=== PATIENT | male | born 1965 | race Two or more races ===

== ENCOUNTER 2022-10-02 12:47 | Inpatient (IN) | payer OTHER ==
[~2022-10-02] VITALS: Ht 157.5 cm; Wt 58.5 kg
--- NOTE | 2022-10-02 12:50 | NUR ---
PT BIBRA FROM HOME, CALLED 911 C/O WORSENING SOB. STATES BEEN SHORT OF BREATH X 3 WEEKS. PT NOTED LOW O2 SATURATION, IN THE LOW 80'S WAS PLACED ON NON REBREATHER AT 15L/MIN, AFEBRILE, PLACED ON MONITOR NOTED TACHYCARDIC AND HYPERTENSIVE SENIOR RESIDENT CARE DIRECTOR. AWAITNG MD GARVEY.
--- NOTE | 2022-10-02 12:58 | NUR ---
DR ESPINOZA AT BEDSIDE FOR EVAL
[2022-10-02] MEDS ORDERED: IPRATROPIUM NEB FS 0.5 MG/2.5 ML AMPUL.NEB NEB ONE (13:00)
[2022-10-02] MEDS ORDERED: ALBUTEROL FS 2.5 MG/3 ML VIAL.NEB NEB ONE (13:00)
[2022-10-02] MEDS ORDERED: methylPREDNISolone SOD SUCC 125 MG/2ML VIAL IV ONE (13:00)
[2022-10-02] MEDS ORDERED: methylPREDNISolone SOD SUCC 125 MG/2ML VIAL ONE (13:01)
[2022-10-02] MEDS ORDERED: IPRATROPIUM NEB FS 0.5 MG/2.5 ML AMPUL.NEB ONE (13:08)
[2022-10-02] MEDS ORDERED: ALBUTEROL FS 2.5 MG/3 ML VIAL.NEB ONE (13:08)
--- NOTE | 2022-10-02 13:11 | NUR ---
COVID TEST COLLECTED AND SENT
[2022-10-02 13:23] LABS: BASOPHILS # (AUTO) 0.1 K/uL (0.0-0.2); BASOPHILS % (AUTO) 0.7 % (0.0-2.0); EOSINOPHILS % (AUTO) 2.5 % (0.0-6.0); HEMATOCRIT 41 % (39-51); HEMOGLOBIN 13.2 g/dL (13.5-17.5); LYMPHOCYTES # (AUTO) 1.3 K/uL (0.8-4.8); LYMPHOCYTES % (AUTO) 11.9 % (20.0-44.0); MEAN CORPUSCULAR HGB CONC 32 g/dl (31.0-36.0); MEAN CORPUSCULAR VOLUME 92 fL (80-96); MONOCYTES # (AUTO) 0.7 K/uL (0.1-1.30); MONOCYTES % (AUTO) 5.9 % (2.0-12.0); NEUTROPHILS # (AUTO) 8.9 K/uL (1.8-8.9); PLATELET COUNT (AUTO) 345 K/uL (150-450); RED BLOOD CELL COUNT(AUTO) 4.48 MIL/uL (4.5-6.0); WHITE BLOOD COUNT (AUTO) 11.2 K/uL (4.3-11.0)
[2022-10-02 13:43] LABS: CALCIUM, SERUM 8.9 mg/dL (8.5-10.1); CARBON DIOXIDE 29 mmol/L (21-32); CHLORIDE 101 mmol/L (98-107); CREATININE 1.5 mg/dL (0.6-1.3); GLUCOSE 112 mg/dL (74-106); POTASSIUM 4.6 mmol/L (3.5-5.1); SODIUM SERUM 136 mmol/L (136-145); UREA NITROGEN, BLOOD 36 mg/dL (7-18)
--- NOTE | 2022-10-02 13:48 | NUR ---
STILL UNABLE TO PROVIDE URINE SAMPLE. URINAL AT BEDSIDE.
[2022-10-02 13:58] LABS: ALANINE AMINOTRANSFERASE 115 U/L (12-78); ALBUMIN 3.1 g/dL (3.4-5.0); ALKALINE PHOSPHATASE 215 U/L (46-116); ASPARTATE AMINOTRANSFERASE 37 U/L (15-37); BILIRUBIN,DIRECT 0.2 mg/dL (0.0-0.2); BILIRUBIN,TOTAL 0.6 mg/dL (0.2-1.0); TOTAL PROTEIN, SERUM 7.4 g/dL (6.4-8.2)
[2022-10-02] MEDS ORDERED: FUROSEMIDE 40 MG/4 ML VIAL IV ONE (14:30)
--- NOTE | 2022-10-02 14:42 | NUR ---
URINE SAMPLE COLECTED SENT TO LAB.
--- NOTE | 2022-10-02 14:45 | NUR ---
BED GIVEN 105
[2022-10-02] MEDS ORDERED: FUROSEMIDE 40 MG/4 ML VIAL ONE (15:47)
--- NOTE | 2022-10-02 16:02 | NUR ---
report given to tele nurse. awaiting transfer to floor.
--- NOTE | 2022-10-02 16:35 | NUR ---
DR ESPINOZA MADE AWARE OF RECENT VITALS.
[2022-10-02] MEDS ORDERED: hydrALAZINE HCL IV 20 MG VIAL ONE (16:47)
--- NOTE | 2022-10-02 16:48 | NUR ---
MEDICATED ORDERED. SEE EMAR
[2022-10-02] MEDS ORDERED: HYDROCODONE/APAP 10/325MG TABLET PO PRN (17:00)
[2022-10-02] MEDS ORDERED: IPRATROPIUM NEB FS 0.5 MG/2.5 ML AMPUL.NEB NEB PRN (17:00)
[2022-10-02] MEDS ORDERED: hydrALAZINE HCL IV 20 MG VIAL IV PRN (17:00)
[2022-10-02] MEDS ORDERED: ACETAMINOPHEN 325 MG TABLET PO PRN (17:00)
[2022-10-02] MEDS ORDERED: ALBUTEROL FS 2.5 MG/3 ML VIAL.NEB NEB PRN (17:00)
[2022-10-02] MEDS ORDERED: MAGNESIUM HYDROXIDE 30 ML UDC PO PRN (17:00)
[2022-10-02] MEDS ORDERED: ONDANSETRON HCL/PF 4 MG/2 ML VIAL IVP PRN (17:00)
[2022-10-02] MEDS ORDERED: hydrALAZINE HCL IV 20 MG VIAL IV ONE (17:00)
[2022-10-02] MEDS ORDERED: Z GUARD REMEDY 4 OZ OINT TP PRN (17:00)
[2022-10-02] MEDS ORDERED: MAG HYDROX/AL HYDROX/SIMETH 30 ML UDC PO PRN (17:00)
[2022-10-02] MEDS ORDERED: HYDROCODONE/APAP 5/325MG TABLET PO PRN (17:00)
[2022-10-02 17:54] VITALS: BP 146/84
[2022-10-02 18:00] VITALS: BP 146/84
[2022-10-02] MEDS ORDERED: ALPR1TAB2 PO (18:00)
[2022-10-02] MEDS ORDERED: METO25TA20 PO (18:00)
[2022-10-02] MEDS ORDERED: CHOL100043 PO (18:00)
[2022-10-02] MEDS ORDERED: HYDR-3980 PO (18:00)
[2022-10-02] MEDS ORDERED: MULT-1169 PO (18:00)
[2022-10-02] MEDS ORDERED: FURO-145 PO (18:00)
[2022-10-02] MEDS ORDERED: ALBU18HF2 IH (18:00)
[2022-10-02] MEDS ORDERED: FLUT1DIS3 IH (18:00)
[2022-10-02] MEDS: FUROSEMIDE 40 MG/4 ML VIAL IV SCH ×2 (18:13→21:28)
[2022-10-02] MEDS: ENOXAPARIN SODIUM 40 MG/0.4 ML DISP.SYRIN SQ SCH (18:14)
--- NOTE | 2022-10-02 19:30 | NUR ---
STOCKROOM COORDINATOR OPENING NOTE RECEIVED PATIENT IN BED, ASLEEP BUT EASY TO AROUSE AND RESPONSIVE. AFEBRILE AND NOT IN ANY FORM OF ACUTE DISTRESS. BREATHING EVEN AND NON LABORED. ON TELE MONITORING WITH CURRENT READING OF ST 102. WITH IV ACCESS ON LFA 20G-SL. SAFETY MEASURES IN PLACE. KEPT BED IN LOCKED AND IN LOW POSITION. SIDE RAILS UP X2. ADVISED TO USE THE CALL LIGHT WHEN IN NEED OF ASSISTANCE.
[2022-10-02 20:00] VITALS: BP 113/66
[2022-10-02] MEDS: methylPREDNISolone SOD SUCC 40 MG/ML VIAL IV SCH (20:28)
--- NOTE | 2022-10-02 22:30 | NUR ---
SUPERVISOR CONCRETE STONE FABRICATING NOTE ECHOCARDIOGRAM DONE AND PER TECH, EF IS 20-25%.
[2022-10-03] VITALS: BP 146/87
[2022-10-03] MEDS: ALPRAZOLAM 1 MG TABLET PO PRN ×2 (01:19→21:14)
[2022-10-03] MEDS: FUROSEMIDE 40 MG/4 ML VIAL IV SCH (01:58)
[2022-10-03 04:00] VITALS: BP 129/76
[2022-10-03] MEDS: methylPREDNISolone SOD SUCC 40 MG/ML VIAL IV SCH ×3 (04:04→21:14)
[2022-10-03 05:48] LABS: BASOPHILS % (AUTO) 0.5 % (0.0-2.0); HEMATOCRIT 44 % (39-51); HEMOGLOBIN 14.5 g/dL (13.5-17.5); LYMPHOCYTES # (AUTO) 0.6 K/uL (0.8-4.8); LYMPHOCYTES % (AUTO) 7.1 % (20.0-44.0); MEAN CORPUSCULAR HGB CONC 33 g/dl (31.0-36.0); MEAN CORPUSCULAR VOLUME 89 fL (80-96); MONOCYTES # (AUTO) 0.1 K/uL (0.1-1.30); MONOCYTES % (AUTO) 1.7 % (2.0-12.0); NEUTROPHILS # (AUTO) 7.6 K/uL (1.8-8.9); NEUTROPHILS % (AUTO) 90.7 % (43.0-81.0); PLATELET COUNT (AUTO) 422 K/uL (150-450); RED BLOOD CELL COUNT(AUTO) 4.92 MIL/uL (4.5-6.0); WHITE BLOOD COUNT (AUTO) 8.4 K/uL (4.3-11.0)
[2022-10-03 06:07] LABS: CALCIUM, SERUM 9.8 mg/dL (8.5-10.1); CREATININE 2.1 mg/dL (0.6-1.3); MAGNESIUM 2.3 mg/dL (1.8-2.4); PHOSPHORUS 4.3 mg/dL (2.5-4.9); POTASSIUM 3.3 mmol/L (3.5-5.1)
[2022-10-03 06:13] LABS: THYROID STIMULATING HORMONE 0.572 uIU/mL (0.358-3.74)
--- NOTE | 2022-10-03 06:29 | NUR ---
SCHOOL CROSSING GUARD CLOSING NOTE PATIENT IN BED, ASLEEP BUT EASY TO AROUSE AND RESPONSIVE. AFEBRILE AND NOT IN ANY FORM OF ACUTE DISTRESS. BREATHING EVEN AND NON LABORED. ON TELE MONITORING WITH CURRENT READING OF SR 93. WITH IV ACCESS ON LFA 20G-SL. MEDICATED ORDERED. SAFETY MEASURES IN PLACE. KEPT BED IN LOCKED AND IN LOW POSITION. SIDE RAILS UP X2. ADVISED TO USE THE CALL LIGHT WHEN IN NEED OF ASSISTANCE. ALL NURSING NEEDS ATTENDED. ENDORSED TO INCOMING SHIFT FOR CONTINUITY OF CARE.
--- NOTE | 2022-10-03 07:29 | NUR ---
STEEL HEATER OPENING NOTE RECEIVED PATIENT IN BED, ASLEEP BUT EASY TO AROUSE AND RESPONSIVE. PT ALERT AND ORIENTED X4. VERBALLY RESPONSIVE AND ABLE TO MAKE NEEDS KNOWN. ON TELE MONITOR. IV ACCESS ON RFA 20G-SL. ALL SAFETY MEASURES IN PLACE. KEPT BED IN LOCKED AND IN LOW POSITION. SIDE RAILS UP X2. CALL LIGHT WITHIN REACH. .
[2022-10-03] MEDS: PANTOPRAZOLE 40 MG TABLET.DR PO SCH (07:36)
[2022-10-03] MEDS: ASPIRIN 81 MG TAB.CHEW PO SCH ×2 (08:16→08:19)
[2022-10-03 08:53] LABS: ABG BASE EXCESS 0.4 mmol/L; ABG PCO2 34.4 mmHg (35.0-45.0); ABG PH 7.458 (7.350-7.450); ABG PO2 67.6 mmHg (75.0-100.0); COHb 0.7 % (0.5-1.5); MetHb 0.3 % (0.0-1.5); O2Hb 93.9 % (94.0-97.0); SITE, ABG Right Radial; VENT MODE, BG ROOM AIR
[2022-10-03 09:00] VITALS: BP 150/64
[2022-10-03] MEDS ORDERED: FUROSEMIDE 40 MG/4 ML VIAL IV SCH (09:00)
[2022-10-03] MEDS: HYDROCODONE/APAP 5/325MG TABLET PO PRN ×2 (09:36→16:51)
[2022-10-03] MEDS: POTASSIUM CHLORIDE 20 MEQ TAB.PRT.SR PO SCH ×3 (09:39→11:42)
[2022-10-03 12:00] VITALS: BP 138/94
[2022-10-03] MEDS: LEVOFLOXACIN (250MG) 250 MG TABLET PO SCH (13:28)
[2022-10-03] MEDS ORDERED: FLUTICASONE/SALMETEROL 1 DISK IH SCH (13:30)
--- NOTE | 2022-10-03 13:56 | NUR ---
SS Consult: SS consult requested for homelessness. The pt. is a 56-year-old White male pt. who was admitted to [facility] for Res[facility] Failure per EMR. Upon SS consult, the pt. is Alert & Oriented x 4 and makes good eye contact. The pt. appears unkempt. Pt. has euthymic mood & affect. Pt. has clear speech and normal thought process. Pt. was calm & cooperative throughout interview. The pt. denies current SI/HI and denies current hallucinations. MARLINE explored pt.s mental health Hx. Pt. states he has been diagnosed with severe depression in the past and prescribed Xanax. Per pt. he incompliant with the medication. SW explored pt.s living situation, Pt. states he resides at home [[address] [facility] [address]] alone. SW explored pt.s drug & ETOH use. Pt. states he uses Methamphetamine about and states he last used about 5 days ago and also smokes cigarettes. SW completed brief drug dependence intervention. Pt. states this is not a problem for him and has no interest in drug rehab at this time. Per pt. he is ambulatory with a cane or walker and independent with all of his ADLs. Pt. states he receives EBT and SSDI. Plan: Per pt. he will be returning home [[address] [facility] [address]; [phone]] when ready for discharge. SW provided pt. with substance use referrals and pt. accepted them. Pt. states he will use resources if he becomes interested is treatment. ADDICTION RESOURCES For Drugs and Alcohol [facility] sober living Referrals For Rehabilitation once sober Address:[address] [place] [address] [facility] Rehabilitation Program [address] [place] [address] Detox/residential [facility] Substance Abuse Helpline ([facility]) Outpatient, residential treatment, recovery support for youth/adults [facility] www.actionfamilycounseling.eCommHub [facility] Teen programs for drug/alcohol education and support Melisa Oneal [place]. Program for adults, sliding scale provides support and education [employer] www.[employer]org [place]; Detox/residential treatment programs; transition to sober living [facility] www.cri-help.org [place]; Outpatient and residential treatment programs; transition to sober living [facility] TEL: [phone] [facility]ont Farias; Outpatient education and supportive programs for teens and adults [facility] www.[facility]asis[facility]omensrecot[facility] health cent[facility].org [place]; Residential treatment and work program for females only [place] www.[facility] [place]: Outpatient/residential treatment program for teens and young adults [facility] www.[facility].org [facility] Detox, inpatient, outpatient for adults and youth [facility]. [place]; Outpatient programs and referrals to community residential programs. Alcoholics Anonymous -SFV information and meeting and scheduleswww.aa-intergroup.org [employer] https://al-anon.org/ [facility] support groups for family of alcoholics. Marijuana Anonymous www.madistrict6.org -SFV listing of meetings Narcotics Anonymous www.na.org SOBER LIVING RESOURCES [facility] www.soberhousing.net A non-profit agency that provides resources to recovery and sober living homes throughout [place], [place], [facility] Sober Living Homes: A Work in ProgressViridiana [facility] [place] [facility], [place] [facility] So[facility] Living Homes: [facility] [phone] [place], [place] [facility] [place] [facility] Sober Living Homes: [facility] Counseling--[facility]patient [facility] [address], [place] [address] (Specializes in in-depth psychotherapy for emotional distress: anxiety, depression, interpersonal conflicts, life transitions, childhood abuse) [facility] [address] [place] [address] (Assist with solving problem marital difficulties, separation & divorce, aging parents, & grief, chronic & terminal illness) [facility] [address] [place] [address] (Deal with loss & grief, anxiety, marital difficulties) Homebound/Mental Health Services [address], [address] [place] [address] (Provide in-home mental services to people who are incapable of leaving their homes) [facility]eds of the Elderly Senior Service/Resource Center [address] [place] [address] [facility] [address] [place] [address] Mental Health Services [facility] [address] [place] [address] Services: Outpatient therapy for children, teens, young adults, adults, older adults, and families; Psychiatric services, medication support Psychiatric Outpatient Services [facility] Partial Hospitalization and Intensive Outpatient Program (Managed Care and [place] Only)[address] [facility]. [facility] [phone] [facility] Partial Hospitalization and Outpatient [id number] [facility]. [address] [place], [place] [phone] [facility] Center [id number] [facility] [place], [place] [phone] [facility] Partial Hospitalization and Outpatient [id number] [facility] Farias, [phone] Crisis and Hotline Telephone Numbers 24-Hour service unless stated [place] Crisis Hotlines: [facility] Mental Health/Crisis Line........582.833.1525 Suicide Prevention Center (24 Hours).......[phone] Suicide Prevention Crisis Center.......[phone] (24 Hours) Assaults Against Women Hotline.........332.100.9263 (24 Hours -- [facility]) Women and Children Crisis Group Home...........[phone] (24 Hours) Child Abuse Hotline............407.153.3258 [facility] (24 Hours)..........[phone] Alcoholics Anonymous (24 Hours)..........[phone] Cocaine Anonymous (24 Hours)............487.823.3052 Narcotics Anonymous (24 Hours)..........417.424.1773 [address] [facility] [address], [place] [address]
--- NOTE | 2022-10-03 14:00 | NUR ---
RN NOTE ENDORSED THAT DUE TO PT BEING A POLYSUBSTANCE ABUSE USER. POSSIBLITY OF INSURANCE NOT COVERING LIFE VEST. PT WOULD HAVE TO PAY $200 OUT OF POCKET. PT AGREEABLE TO PAY $200 OUT OF POCKET FOR LIFEVEST.
[2022-10-03 16:00] VITALS: BP 149/73
[2022-10-03] MEDS: ENOXAPARIN SODIUM 40 MG/0.4 ML DISP.SYRIN SQ SCH (16:53)
--- NOTE | 2022-10-03 16:56 | NUR ---
FINISHING RANGE SUPERVISOR NOTES PATIENT REFUSES TO PUT ON CHOPPED STRAND OPERATOR BOX. DR. CHER RAY NOTIFIED. NO NEW ORDERS
--- NOTE | 2022-10-03 19:25 | NUR ---
RN NOTE RECEIVED PT FOR CONTINUITY OF CARE. PATIENT A/OX4 IN NO S/SX OF ACUTE DISTRESS AT THIS TIME; CURRENTLY ON ROOM AIR; WITH 02 SAT >95% AT THIS TIME.WITH IV ACCESS PATENT, INTACT AND FLUSHING WELL. PT AMBULATORY AND INDEPENDENT. WILL ENSURE SAFETY MEASURES WITHIN THE SHIFT. PATIENT BED ALARM IS ON. HEAD OF BED ELEVATED. BED IS LOCKED, IN LOWEST POSITION AND SIDE RAILS UP. CALL LIGHT WITHIN REACH OF THE PATIENT. WILL CONTINUE TO MONITOR AND REASSESS FOR ANY CHANGES AND WILL CARRY OUT ANY ONGOING AND ACTIVE MD ORDER.
[2022-10-03] MEDS ORDERED: ALBUTEROL FS 2.5 MG/3 ML VIAL.NEB NEB SCH (19:30)
--- NOTE | 2022-10-03 19:32 | NUR ---
FENCE MAKING MACHINE OPERATOR CLOSING NOTE PT ALERT AND ORIENTED X4. VERBALLY RESPONSIVE AND ABLE TO MAKE NEEDS KNOWN. O2 AT 100% ON ROOM AIR. PT ALTERNATES WITH NASAL CANNULA AT TIMES FOR COMFORT.ON TELE MONITOR. IV ACCESS ON RFA 20G-SL. IV PATENT, INTACT AND FLUSHING WELL. PT AMBULATORY. REINFORCED TEACHING FOR PATIENT TO USE CALL LIGHT WHEN IN NEED OF ASSISTANCE. PT AMBULATORY WITH STEADY GAIT. PT VERBALIZED UNDERSTANDING AND AGREED. ALL SAFETY MEASURES IN PLACE. KEPT BED IN LOCKED AND IN LOW POSITION. SIDE RAILS UP X2. CALL LIGHT WITHIN REACH.BED ALARM ON.ENDORSED TO LAST PICKER RN FOR CONTUITY OF CARE
[2022-10-03] MEDS: ALBUTEROL FS 2.5 MG/3 ML VIAL.NEB NEB SCH (19:47)
[2022-10-03] MEDS: IPRATROPIUM NEB FS 0.5 MG/2.5 ML AMPUL.NEB NEB SCH (19:47)
[2022-10-03] MEDS: BUDESONIDE RESPULE INH 0.5 MG/2 ML AMPUL.NEB IH SCH (19:48)
[2022-10-03 20:00] VITALS: BP 138/95
[2022-10-04] VITALS: BP 150/82
[2022-10-04] MEDS: ALBUTEROL FS 2.5 MG/3 ML VIAL.NEB NEB SCH ×4 (01:41→19:49)
[2022-10-04] MEDS: IPRATROPIUM NEB FS 0.5 MG/2.5 ML AMPUL.NEB NEB SCH ×4 (01:41→19:49)
[2022-10-04 04:00] VITALS: BP 139/78
--- NOTE | 2022-10-04 04:00 | NUR ---
RN NOTE PATIENT REMAINED TO BE IN NO SIGNS OF ACUTE RESPIRATORY DISTRESS , SAFE ENVIRONMENT MAINTAINED FOR PT. AM PATIENT CARE ASSISTANCE RENDERED. WILL CONTINUE TO MONITOR AND REASSESS FOR ANY CHANGES THROUGHOUT THE SHIFT.
[2022-10-04] MEDS: methylPREDNISolone SOD SUCC 40 MG/ML VIAL IV SCH ×3 (05:35→21:11)
--- NOTE | 2022-10-04 06:35 | NUR ---
RN CLOSING NOTE PATIENT REMAINS IN ROOM IN NO SIGNS OF RESPIRATORY DISTRESS, PATIENT STILL ON ROOM AIR;TOLERATING WELL SATURATING @ >95% SP02. SAFETY MEASURES IMPLEMENTED, BED IN LOWEST POSITION, LOCKED, SIDE RAILS UP, CALL LIGHT WITHIN REACH. ALL NEEDS AND ORDERS ADDRESSED DURING THE SHIFT. IV ACCESS MAINTAINED INTACT, SECURED AND FLUSHING WELL. ALL DUE MEDS GIVEN ORDERED & SCHEDULED ; PATIENT TOLERATED WELL. PATIENT KEPT CLEAN AND COMFORTABLE WITHIN THE SHIFT. PATIENT ENDORSED TO INCOMING SHIFT RN WITH STABLE VITAL SIGN AND FOR CONTINUITY OF CARE.
--- NOTE | 2022-10-04 07:02 | NUR ---
MEN'S CUSTOM HAIR PIECE CONSULTANT OPENING NOTES RECEIVED PATIENT AWAKE IN BED, A/O x4 ABLE TO MAKE NEEDS KNOWN. ON ROOM AIR, NO S/S OF RESPIRATORY DISTRESS. PATIENT ON TELE MONITORING SHOWING A-FIB HR 105, NO C/O OF CARDIAC DISTRESS OR DISCOMFORT. IV ACCESS R FA #[id number], S/L INTACT AND PATENT. PATIENT AMBULATORY USES URINAL. SKIN INTACT. SAFETY MEASURES IN PLACE: BED LOCKED AND IN LOWEST POSITION, HOB ELEVATED, SIDE RAILS UPx2, CALL LIGHT WITHIN REACH. WILL CONTINUE TO MONITOR.
[2022-10-04] MEDS: BUDESONIDE RESPULE INH 0.5 MG/2 ML AMPUL.NEB IH SCH ×3 (07:34→19:49)
[2022-10-04] MEDS: PANTOPRAZOLE 40 MG TABLET.DR PO SCH (07:36)
[2022-10-04 07:59] LABS: BASOPHILS # (AUTO) 0.1 K/uL (0.0-0.2); BASOPHILS % (AUTO) 0.5 % (0.0-2.0); HEMATOCRIT 40 % (39-51); HEMOGLOBIN 13.1 g/dL (13.5-17.5); LYMPHOCYTES # (AUTO) 0.5 K/uL (0.8-4.8); LYMPHOCYTES % (AUTO) 2.7 % (20.0-44.0); MEAN CORPUSCULAR HGB CONC 33 g/dl (31.0-36.0); MEAN CORPUSCULAR VOLUME 90 fL (80-96); MONOCYTES # (AUTO) 0.2 K/uL (0.1-1.30); MONOCYTES % (AUTO) 1.2 % (2.0-12.0); NEUTROPHILS # (AUTO) 18.5 K/uL (1.8-8.9); NEUTROPHILS % (AUTO) 95.6 % (43.0-81.0); PLATELET COUNT (AUTO) 420 K/uL (150-450); RED BLOOD CELL COUNT(AUTO) 4.47 MIL/uL (4.5-6.0); WHITE BLOOD COUNT (AUTO) 19.4 K/uL (4.3-11.0)
[2022-10-04 08:00] VITALS: BP 160/96
[2022-10-04 08:27] LABS: ALBUMIN 2.9 g/dL (3.4-5.0); BILIRUBIN,TOTAL 0.2 mg/dL (0.2-1.0); CALCIUM, SERUM 9.3 mg/dL (8.5-10.1); MAGNESIUM 2.2 mg/dL (1.8-2.4); PHOSPHORUS 3.8 mg/dL (2.5-4.9); POTASSIUM 4.3 mmol/L (3.5-5.1); TOTAL PROTEIN, SERUM 7.3 g/dL (6.4-8.2)
[2022-10-04] MEDS: ALPRAZOLAM 1 MG TABLET PO PRN ×2 (08:52→16:55)
[2022-10-04] MEDS: CHOLECALCIFEROL 1,000 UNIT TABLET (VIT D3) PO SCH (08:52)
[2022-10-04] MEDS: MULTIVITAMINS,THERAGRAN 1 UDTAB TABLET PO SCH (08:52)
[2022-10-04] MEDS: ASPIRIN 81 MG TAB.CHEW PO SCH (08:53)
--- NOTE | 2022-10-04 09:20 | NUR ---
RN NOTES PATIENT REQUESTED PRN XANAX, ADMINISTERED. WILL CONTINUE TO MONITOR.
[2022-10-04] MEDS: SPIRONOLACTONE 25 MG TABLET PO SCH (10:35)
[2022-10-04 12:15] VITALS: BP 162/105
[2022-10-04] MEDS: LEVOFLOXACIN (250MG) 250 MG TABLET PO SCH (13:04)
[2022-10-04] MEDS: HYDROCODONE/APAP 5/325MG TABLET PO PRN ×2 (13:09→21:12)
--- NOTE | 2022-10-04 13:11 | NUR ---
RN NOTES PATIENT COMPLAINED OF PAIN 6/10 OF HAND, PRN NARCO ADMINISTERED.WILL CONTINUE TO MONITOR.
[2022-10-04 14:51] LABS: BILIRUBIN,URINE NEGATIVE (NEGATIVE); COLOR,URINE YELLOW (YELLOW); LEUKOCYTE ESTERASE ,URINE NEGATIVE (NEGATIVE); NITRITE, URINE NEGATIVE (NEGATIVE); PROTEIN,URINE 1+ mg/dl (NEGATIVE); UGLUCOSE NEGATIVE (NEGATIVE); UROBILINOGEN,URINE 0.2 EU/dL (0.2)
[2022-10-04 15:29] LABS: CALCIUM OXALATE CRYSTALS,UR Moderate /HPF (None Seen); RBC,URINE 0-2 /HPF (0-2); WBC,URINE 0-2 /HPF (0-3)
[2022-10-04 15:30] LABS: BACTERIA,URINE Few /HPF (None Seen); SQUAMOUS EPITHELIAL CELL,UR Few /HPF (None Seen)
--- NOTE | 2022-10-04 15:42 | NUR ---
RN NOTES PATIENT HAVING ANXIETY, PUT ON 2L OF O2 VIA NC, HELPED RAISE SATURATION. PATIENT THEN BEGAN TO REFUSE O2, WAS ALLOWED TO SIT ON A CHAIR IN THE ROOM DOORWAY. PATIENT REFUSED FITTING FOR LIFE VEST, SPOKE TO LEOBARDO [phone] FROM [facility]. WILL ATTEMPT TO TALK TO PATIENT ABOUT GETTING FITTED FOR VEST. NOTIFIED.
[2022-10-04 16:00] VITALS: BP 172/107
--- NOTE | 2022-10-04 16:47 | NUR ---
RN NOTES PATIENT BP RETAKEN AFTER PATIENT CALMED DOWN, 159/97, WILL CONTINUE TO MONITOR.
[2022-10-04 16:48] LABS: CREATININE, URINE 96.2 MG/DL (30.0-125.0)
[2022-10-04] MEDS: ENOXAPARIN SODIUM 40 MG/0.4 ML DISP.SYRIN SQ SCH (16:55)
--- NOTE | 2022-10-04 17:23 | NUR ---
RN NOTES PATIENT GIVEN PRN XANAX, HAS SOME SYMPTOMS OF ANXIETY. WILL CONTINUE TO MONITOR.
--- NOTE | 2022-10-04 18:37 | NUR ---
MS RN CLOSING NOTES PATIENT AWAKE IN BED, A/O x4 ABLE TO MAKE NEEDS KNOWN. STABLE ON ROOM AIR, NO S/S OF RESPIRATORY DISTRESS. NO C/O OF PAIN OR DISCOMFORT. IV ACCESS R FA #20, S/L INTACT AND PATENT. PATIENT AMBULATORY USES URINAL. SKIN INTACT. ALL DUE MEDICATION ADMINISTERED. PATIENT STILL DOES NOT WANT LIFE VEST FITTING AT THIS TIME. MD AWARE. SAFETY MEASURES MAINTAINED: BED LOCKED AND IN LOWEST POSITION, HOB ELEVATED, SIDE RAILS UPx2, CALL LIGHT WITHIN REACH. WILL ENDORSE TO NEXT SHIFT ANY KESHA.
[2022-10-04 20:00] VITALS: BP 147/91
[2022-10-04] MEDS: MUPIROCIN OINT 2% 22 GM TUBE TP SCH (21:13)
[2022-10-05] MEDS: IPRATROPIUM NEB FS 0.5 MG/2.5 ML AMPUL.NEB NEB SCH ×3 (01:27→12:31)
[2022-10-05] MEDS: ALBUTEROL FS 2.5 MG/3 ML VIAL.NEB NEB SCH ×3 (01:27→12:31)
[2022-10-05 04:00] VITALS: BP 145/82
[2022-10-05] MEDS: methylPREDNISolone SOD SUCC 40 MG/ML VIAL IV SCH (04:51)
[2022-10-05 07:10] LABS: CALCIUM, SERUM 9.7 mg/dL (8.5-10.1); CREATININE 1.8 mg/dL (0.6-1.3); POTASSIUM 4.6 mmol/L (3.5-5.1)
--- NOTE | 2022-10-05 07:10 | NUR ---
RN OPENING NOTE PATIENT IS AWAKE, AMBULATORY WITH BPR, ON ROOM AIR, NO SIGNS OF RESPIRATORY DISTRESS, SATURATING 95%. IV ACCESS RIGHT UA 20G, FLUSHES WELL. SAFETY MEASURES IMPLEMENTED, BED IN LOWEST POSITION, LOCKED, CALL LIGHT WITHIN REACH. WILL CONTINUE TO MONITOR.
[2022-10-05] MEDS: PANTOPRAZOLE 40 MG TABLET.DR PO SCH (07:24)
[2022-10-05] MEDS: BUDESONIDE RESPULE INH 0.5 MG/2 ML AMPUL.NEB IH SCH (07:37)
[2022-10-05 08:00] VITALS: BP 186/96
[2022-10-05] MEDS: CHOLECALCIFEROL 1,000 UNIT TABLET (VIT D3) PO SCH (08:34)
[2022-10-05] MEDS: SPIRONOLACTONE 25 MG TABLET PO SCH (08:34)
[2022-10-05] MEDS: MULTIVITAMINS,THERAGRAN 1 UDTAB TABLET PO SCH (08:34)
[2022-10-05] MEDS: ASPIRIN 81 MG TAB.CHEW PO SCH (08:34)
[2022-10-05] MEDS: MUPIROCIN OINT 2% 22 GM TUBE TP SCH (08:34)
[2022-10-05] MEDS: HYDROCODONE/APAP 5/325MG TABLET PO PRN (09:36)
--- NOTE | 2022-10-05 12:50 | NUR ---
PATIENT LEFT AGAINST MEDICAL ADVISE. DOCTOR NOTIFIED, PATIENT ADVISED TO STAY AT LEAST ONE MORE DAY, RISKS AND BENEFIT EXPLAINED, PT REFUSED. DISCHARGE INSTRUCTION GIVEN, PHARMACY INFORMATION UPDATED.
[2022-10-05] MEDS ORDERED: METH4TAB PO (15:03)
[2022-10-05] MEDS ORDERED: FLUT1DIS3 IH (15:03)
[2022-10-05] MEDS ORDERED: ALBU8.5H8 INH (15:03)
[2022-10-05] MEDS ORDERED: SPIR25TA6 PO (15:03)
[2022-10-05] MEDS ORDERED: LEVO500T90 PO (15:03)
== END 2022-10-05 12:40 | disposition left against medical advice (07) | DRG 133 ==
LOC: ER 13:10 → TELE1 15:13 → MEDSG1 10-04 14:29
PROVIDERS: ADMIT Nurse Practitioner Acute Care; ATTEND Nurse Practitioner Acute Care
DX: J96.01 Acute respiratory failure with hypoxia (principal); N17.0 Acute kidney failure with tubular necrosis; I21.A1 Myocardial infarction type 2; I50.33 Acute on chronic diastolic (congestive) heart failure; J15.9 Unspecified bacterial pneumonia; I42.7 Cardiomyopathy due to drug and external agent; I11.0 Hypertensive heart disease with heart failure; J44.0 Chronic obstructive pulmonary disease with (acute) lower respiratory infection; E86.0 Dehydration; F32.A Depression, unspecified; G89.29 Other chronic pain; I16.0 Hypertensive urgency; Z88.0 Allergy status to penicillin; M06.9 Rheumatoid arthritis, unspecified; F15.10 Other stimulant abuse, uncomplicated; F17.210 Nicotine dependence, cigarettes, uncomplicated; Z71.6 Tobacco abuse counseling; J44.1 Chronic obstructive pulmonary disease with (acute) exacerbation; F41.9 Anxiety disorder, unspecified; R74.8 Abnormal levels of other serum enzymes
CPT/HCPCS: 36415; 36600; 71045-TC; 76770-TC; 80048-TC; 80053-TC; 80061-TC; 80076-TC; 81001; 82570-TC; 82803-TC; 83735-TC; 83880; 84100-TC; 84155; 84165; 84300-TC; 84443-TC; 84484-TC; 85025-TC; 87081-TC; 93307-TC; 94799-TC; C9803; G0378; J0360; J1650; J1940; J2920; J2930